=== PATIENT | female | born 1930 | race Caucasian/White ===

== ENCOUNTER 2016-12-20 12:42 | Outpatient (CLI) | payer MEDICARE, OTHER ==
[2016-04-19 16:59] VITALS: O2SAT 97
== END 2016-12-20 12:43 | disposition home or self-care (01) | DRG 561 ==
LOC: CONVCARE 12:42
PROVIDERS: ATTEND Orthopaedic Surgery
DX: S32.020D Wedge compression fracture of second lumbar vertebra, subsequent encounter for fracture with routine healing (principal); M53.3 Sacrococcygeal disorders, not elsewhere classified
CPT/HCPCS: 72120

== ENCOUNTER 2016-12-26 08:30 | Day surgery (SDC) | payer MEDICARE, OTHER ==
[2016-12-26] MEDS ORDERED: TRIAMCINOLONE ACETONIDE 40 MG/ML SUS ONE (09:08)
[2016-12-26] MEDS ORDERED: LIDOCAINE HCL 1% MPF SOL ONE (09:18)
[2016-12-26] MEDS ORDERED: DEXAMETHASONE SOD PHOS PF 10 MG/ML SOL IJ ONE (09:22)
[2016-12-26 09:43] VITALS: BP 123/82; PULSE 78; RESP 20; TEMP 97.8; O2SAT 97
== END 2016-12-26 09:55 | disposition home or self-care (01) | DRG 552 ==
LOC: SURG 08:30
PROVIDERS: ATTEND Nurse Anesthetist, Certified Registered
DX: M54.5 Low back pain (principal); M54.16 Radiculopathy, lumbar region
CPT/HCPCS: J1100; J2001; J3300

== ENCOUNTER 2017-01-29 11:13 | Day surgery (SDC) | payer MEDICARE, OTHER ==
[2017-01-29 11:41] VITALS: RESP 16; O2SAT 98
[2017-01-29] MEDS: DEXAMETHASONE SOD PHOS PF 10 MG/ML SOL IJ ONE ×2 (12:13→12:22)
[2017-01-29 12:34] VITALS: PULSE 107; TEMP 98.2
[2017-01-29 12:37] VITALS: BP 139/91
== END 2017-01-29 13:01 | disposition home or self-care (01) | DRG 552 ==
LOC: SURG 11:13
PROVIDERS: ATTEND Nurse Anesthetist, Certified Registered
DX: M54.5 Low back pain (principal); M54.16 Radiculopathy, lumbar region; Z79.01 Long term (current) use of anticoagulants
CPT/HCPCS: 36415; 85610; J1100

== ENCOUNTER 2017-05-09 09:48 | Outpatient (CLI) | payer MEDICARE, OTHER ==
[2017-01-29 11:41] VITALS: O2SAT 98
== END 2017-05-09 09:49 | disposition home or self-care (01) | DRG 556 ==
LOC: CONVCARE 09:48
PROVIDERS: ATTEND Orthopaedic Surgery
DX: M25.532 Pain in left wrist (principal); M67.432 Ganglion, left wrist
CPT/HCPCS: 73110

== ENCOUNTER → 2017-06-06 | Day surgery (SDC) | payer MEDICARE, OTHER ==
[~2017-06-06] MED LIST: BUPIVACAINE HCL 0.25% MPF 10 ML SOL INFIL ONE; FENTANYL 100MCG/2ML SOL ONE; LIDOCAINE HCL 1% MPF SOL ONE; MIDAZOLAM 2 MG/2 ML SOL ONE; PROPOFOL 10 MG/ML EMU IV ONE
[2017-06-06 11:08] VITALS: RESP 18
[2017-06-06 11:39] VITALS: O2SAT 97
[2017-06-06 12:43] VITALS: BP 121/78; PULSE 86; TEMP 97.4
== END | disposition home or self-care (01) | DRG 558 ==
LOC: SURG 08:13
PROVIDERS: ATTEND Orthopaedic Surgery
DX: M67.432 Ganglion, left wrist (principal)
CPT/HCPCS: 72192; J2250; J3010; A6402; J2001; J2704

== ENCOUNTER 2017-06-13 10:23 | Outpatient (CLI) | payer MEDICARE, OTHER ==
[2017-06-06 11:39] VITALS: O2SAT 97
== END 2017-06-13 10:24 | disposition home or self-care (01) | DRG 536 ==
LOC: CONVCARE 10:23
PROVIDERS: ATTEND Orthopaedic Surgery
DX: S72.002A Fracture of unspecified part of neck of left femur, initial encounter for closed fracture (principal); I48.91 Unspecified atrial fibrillation; Z79.01 Long term (current) use of anticoagulants; Z01.818 Encounter for other preprocedural examination
CPT/HCPCS: 36415; 85610

== ENCOUNTER 2017-06-13 11:54 | Inpatient (IN) | payer MEDICARE, OTHER ==
[2017-06-13 17:27] LABS: ABO O; ANTIBODY SCREEN Negative; RH TYPE Positive
[2017-06-13 19:50] LABS: UNIT TYPE O POSITIVE
[2017-06-13 19:51] LABS: UNIT TYPE O POSITIVE
[2017-06-13] MEDS: ACETAMINOPHEN 500 MG 500 MG TAB PO PRN (20:20)
[2017-06-13] MEDS: DILTIAZEM ER 120 MG C24 PO SCH (20:21)
[2017-06-13] MEDS: ATORVASTATIN 10 MG TAB PO SCH (20:22)
[2017-06-13] MEDS: METOPROLOL TARTRATE 50 MG TAB PO SCH (20:22)
[2017-06-13] MEDS: MAGNESIUM OXIDE 400 MG TAB PO SCH (20:23)
[2017-06-13] MEDS: PRAMIPEXOLE DIHYDROCHLORIDE 0.25 MG TAB PO SCH (20:24)
[2017-06-13] MEDS: DIPHENHYDRAMINE 25 MG CAP PO PRN (22:22)
[2017-06-13] MEDS: SODIUM CHLORIDE 0.9% FLUSH 10 ML SOL IV SCH (22:27)
[2017-06-14] MEDS ORDERED: LACTATED RINGERS 1,000 ML IV ONE (05:00)
[2017-06-14] MEDS: SODIUM CHLORIDE 0.9% FLUSH 10 ML SOL IV SCH ×5 (05:26→21:37)
[2017-06-14] MEDS ORDERED: LACTATED RINGERS 1,000 ML IV SCH (06:00)
[2017-06-14] MEDS: SCOPOLAMINE 1.5MG PATCH TD SCH (06:02)
[2017-06-14] MEDS: METOPROLOL TARTRATE 50 MG TAB PO SCH ×2 (06:25→09:35)
[2017-06-14 07:30] LABS: BASOPHILS % (AUTO) 1 % (0-3); EOSINOPHILS % (AUTO) 1 % (0-9); HEMATOCRIT 33 % (35-47); MEAN CORPUSCULAR HGB CONC 32.7 gm/dl (32.0-36.0); MONOCYTES % (AUTO) 10.6 % (0-12); NEUTROPHILS % (AUTO) 70.1 % (37-80)
[2017-06-14] MEDS ORDERED: TRANEXAMIC ACID 100 MG/ML SOL ONE (07:30)
[2017-06-14] MEDS ORDERED: SODIUM CHLORIDE 20 ML 40 ML ONE (07:30)
[2017-06-14 07:31] LABS: MEAN CORPUSCULAR VOLUME 99 fL (81-99)
[2017-06-14] MEDS ORDERED: BUPIVACAINE LIPOSOME 20 ML SUS ONE (07:31)
[2017-06-14] MEDS ORDERED: MIDAZOLAM 2 MG/2 ML SOL ONE (07:37)
[2017-06-14] MEDS ORDERED: ONDANSETRON HCL 4 MG/2 ML SOL ONE (07:37)
[2017-06-14] MEDS ORDERED: METOCLOPRAMIDE HYDROCHLORIDE 5 MG/ML SOL ONE (07:37)
[2017-06-14] MEDS ORDERED: CEFAZOLIN SODIUM 1 GM PDS ONE ×2 (07:37→15:34)
[2017-06-14] MEDS ORDERED: KETAMINE HYDROCHLORIDE 50 MG/ML SOL ONE (07:37)
[2017-06-14] MEDS ORDERED: DEXAMETHASONE 20 MG/5 ML (4 MG/ML SOL) ONE (07:38)
[2017-06-14] MEDS ORDERED: FENTANYL 100MCG/2ML SOL ONE (09:32)
[2017-06-14] MEDS: SPIRONOLACTONE 25 MG TAB PO SCH (09:34)
[2017-06-14] MEDS: PRAMIPEXOLE DIHYDROCHLORIDE 0.25 MG TAB PO SCH (09:35)
[2017-06-14] MEDS: DILTIAZEM ER 120 MG C24 PO SCH (09:35)
[2017-06-14] MEDS: MAGNESIUM OXIDE 400 MG TAB PO SCH (09:35)
[2017-06-14] MEDS: FUROSEMIDE 20 MG TAB PO SCH (09:35)
[2017-06-14] MEDS: ATORVASTATIN 10 MG TAB PO SCH (09:35)
[2017-06-14] MEDS ORDERED: SODIUM CHLORIDE 0.9% 500 ML 500 ML IV PRN (10:04)
[2017-06-14] MEDS ORDERED: DIPHENHYDRAMINE 25 MG CAP PO PRN (10:04)
[2017-06-14] MEDS ORDERED: MAGNESIUM HYDROXIDE 30 ML SUS PO PRN (10:04)
[2017-06-14] MEDS ORDERED: FLEET ENEMA PR PRN (10:04)
[2017-06-14] MEDS ORDERED: HYDROMORPHONE HCL 2 MG/ML SOL IV PRN (10:04)
[2017-06-14] MEDS ORDERED: ONDANSETRON 4 MG ODT BU PRN (10:04)
[2017-06-14] MEDS ORDERED: ONDANSETRON HCL 4 MG/2 ML SOL IV PRN (10:04)
[2017-06-14] MEDS ORDERED: BISACODYL 10 MG SUP PR PRN (10:04)
[2017-06-14] MEDS ORDERED: CEPHALEXIN 250 MG/5 ML BOTTLE PO SCH (10:15)
[2017-06-14] MEDS ORDERED: KETOROLAC TROMETHAMINE 30 MG/ML SOL ONE (10:54)
[2017-06-14] MEDS ORDERED: LORAZEPAM 2 MG/ML SOL IV PRN (11:50)
[2017-06-14] MEDS ORDERED: LORAZEPAM 0.5 MG TAB PO PRN (11:50)
[2017-06-14] MEDS: NICOTINE 7 MG PATCH TD SCH (12:05)
[2017-06-14] MEDS: DEXTROSE/SALINE 0.45% 1,000 ML IV SCH ×2 (12:06→21:35)
[2017-06-14] MEDS ORDERED: ALBUTEROL NEB SOL 2.5MG/3ML 1 VIAL SOL NEB PRN (12:33)
[2017-06-14] MEDS ORDERED: CEFAZOLIN SODIUM 1 GM PDS 1 GM in SODIUM CHLORIDE 0.9% 50 ML 50 ML IV SCH (14:15)
[2017-06-14] MEDS ORDERED: SODIUM CHLORIDE 0.9% 50 ML 50 ML IV ONE (15:34)
[2017-06-14] MEDS: CEFAZOLIN SODIUM 1 GM PDS 1 GM in SODIUM CHLORIDE 0.9% 50 ML 50 ML IV SCH (16:11)
[2017-06-14] MEDS: APAP/HYDROCODONE 325/5 TAB PO PRN ×2 (18:15→21:45)
[2017-06-14] MEDS: SENNOSIDES A AND B 8.6 MG TAB PO SCH (21:36)
[2017-06-14] MEDS: TEMAZEPAM 15MG 15 MG CAP PO PRN (21:45)
[2017-06-15] MEDS ORDERED: CEFAZOLIN SODIUM 1 GM PDS ONE (00:10)
[2017-06-15] MEDS ORDERED: SODIUM CHLORIDE 0.9% 50 ML 50 ML IV ONE (00:11)
[2017-06-15] MEDS: CEFAZOLIN SODIUM 1 GM PDS 1 GM in SODIUM CHLORIDE 0.9% 50 ML 50 ML IV SCH (00:31)
[2017-06-15] MEDS: DIAZEPAM 5 MG TAB PO PRN (00:33)
[2017-06-15] MEDS: SODIUM CHLORIDE 0.9% FLUSH 10 ML SOL IV SCH ×7 (03:46→23:10)
[2017-06-15] MEDS: APAP/HYDROCODONE 325/5 TAB PO PRN ×4 (04:23→20:39)
[2017-06-15] MEDS: DEXTROSE/SALINE 0.45% 1,000 ML IV SCH (06:31)
[2017-06-15] MEDS: CEPHALEXIN 250 MG/5 ML BOTTLE PO SCH ×4 (06:31→23:09)
[2017-06-15 07:13] LABS: MEAN CORPUSCULAR HGB CONC 33.2 gm/dl (32.0-36.0)
[2017-06-15] MEDS: SPIRONOLACTONE 25 MG TAB PO SCH (09:06)
[2017-06-15] MEDS: DILTIAZEM ER 120 MG C24 PO SCH (09:07)
[2017-06-15] MEDS: FUROSEMIDE 20 MG TAB PO SCH (09:07)
[2017-06-15] MEDS: METOPROLOL TARTRATE 50 MG TAB PO SCH (09:08)
[2017-06-15] MEDS: ATORVASTATIN 10 MG TAB PO SCH (09:08)
[2017-06-15] MEDS: MAGNESIUM OXIDE 400 MG TAB PO SCH (09:09)
[2017-06-15] MEDS: PRAMIPEXOLE DIHYDROCHLORIDE 0.25 MG TAB PO SCH (09:09)
[2017-06-15] MEDS ORDERED: SODIUM CHLORIDE 0.9% 500 ML 500 ML IV SCH ×2 (11:45→12:00)
[2017-06-15] MEDS ORDERED: SODIUM CHLORIDE 0.9% FLUSH 10 ML SOL IV PRN (11:53)
[2017-06-15] MEDS ORDERED: FUROSEMIDE 20mg SOL IV ONE (12:00)
[2017-06-15] MEDS: NICOTINE 7 MG PATCH TD SCH (13:54)
[2017-06-15] MEDS: WARFARIN SODIUM 2.5 MG TAB PO SCH (17:25)
[2017-06-15] MEDS: TEMAZEPAM 15MG 15 MG CAP PO PRN (20:39)
[2017-06-15] MEDS: SENNOSIDES A AND B 8.6 MG TAB PO SCH (20:39)
[2017-06-15] MEDS: ALUMINUM/MAGNESIUM 30 ML SUS PO PRN (23:08)
[2017-06-16] MEDS: DIAZEPAM 5 MG TAB PO PRN (00:57)
[2017-06-16] MEDS: APAP/HYDROCODONE 325/5 TAB PO PRN ×2 (02:30→18:45)
[2017-06-16] MEDS ORDERED: SODIUM CHLORIDE 0.9% 500 ML 500 ML IV ONE (04:48)
[2017-06-16] MEDS: SODIUM CHLORIDE 0.9% FLUSH 10 ML SOL IV SCH ×4 (06:16→21:24)
[2017-06-16] MEDS: CEPHALEXIN 250 MG/5 ML BOTTLE PO SCH ×4 (06:16→23:06)
[2017-06-16 07:34] LABS: MEAN CORPUSCULAR HGB CONC 33.3 gm/dl (32.0-36.0)
[2017-06-16] MEDS: PRAMIPEXOLE DIHYDROCHLORIDE 0.25 MG TAB PO SCH ×2 (10:27→20:14)
[2017-06-16] MEDS: FUROSEMIDE 20 MG TAB PO SCH (11:04)
[2017-06-16] MEDS: DILTIAZEM ER 120 MG C24 PO SCH (11:04)
[2017-06-16] MEDS: METOPROLOL SUCCINATE 50 MG ER TAB PO SCH (11:05)
[2017-06-16] MEDS: SPIRONOLACTONE 25 MG TAB PO SCH (11:05)
[2017-06-16] MEDS: ATORVASTATIN 10 MG TAB PO SCH (11:05)
[2017-06-16] MEDS: POLYETHYLENE GLYCOL 17 GM/1 TBS PDS PO SCH (11:08)
[2017-06-16] MEDS: MAGNESIUM OXIDE 400 MG TAB PO SCH (11:14)
[2017-06-16] MEDS: ALUMINUM/MAGNESIUM 30 ML SUS PO PRN (11:23)
[2017-06-16] MEDS: NICOTINE 7 MG PATCH TD SCH (14:26)
[2017-06-16] MEDS: WARFARIN SODIUM 2.5 MG TAB PO SCH (18:42)
[2017-06-16] MEDS: TEMAZEPAM 15MG 15 MG CAP PO PRN ×2 (20:14→23:07)
[2017-06-16] MEDS: SENNOSIDES A AND B 8.6 MG TAB PO SCH (20:14)
[2017-06-16] MEDS ORDERED: METOPROLOL SUCCINATE 50 MG ER TAB PO SCH (21:00)
[2017-06-17] MEDS: APAP/HYDROCODONE 325/5 TAB PO PRN ×2 (02:33→12:39)
[2017-06-17] MEDS: CEPHALEXIN 250 MG/5 ML BOTTLE PO SCH ×3 (06:23→18:09)
[2017-06-17] MEDS: SODIUM CHLORIDE 0.9% FLUSH 10 ML SOL IV SCH ×3 (06:23→22:16)
[2017-06-17] MEDS: SCOPOLAMINE 1.5MG PATCH TD SCH (06:24)
[2017-06-17 07:21] LABS: MEAN CORPUSCULAR HGB CONC 34.8 gm/dl (32.0-36.0)
[2017-06-17] MEDS: DILTIAZEM ER 120 MG C24 PO SCH (09:02)
[2017-06-17] MEDS: SPIRONOLACTONE 25 MG TAB PO SCH (09:02)
[2017-06-17] MEDS: ATORVASTATIN 10 MG TAB PO SCH (09:02)
[2017-06-17] MEDS: FUROSEMIDE 20 MG TAB PO SCH (09:02)
[2017-06-17] MEDS: MAGNESIUM OXIDE 400 MG TAB PO SCH (09:03)
[2017-06-17] MEDS: POLYETHYLENE GLYCOL 17 GM/1 TBS PDS PO SCH (09:03)
[2017-06-17] MEDS: ACETAMINOPHEN 500 MG 500 MG TAB PO PRN (09:05)
[2017-06-17] MEDS: METOPROLOL SUCCINATE 50 MG ER TAB PO SCH (09:05)
[2017-06-17] MEDS: NICOTINE 7 MG PATCH TD SCH (11:08)
[2017-06-17] MEDS: WARFARIN SODIUM 2.5 MG TAB PO SCH (18:09)
[2017-06-17] MEDS: PRAMIPEXOLE DIHYDROCHLORIDE 0.25 MG TAB PO SCH (20:19)
[2017-06-17] MEDS: SENNOSIDES A AND B 8.6 MG TAB PO SCH (20:21)
[2017-06-18] MEDS: CEPHALEXIN 250 MG/5 ML BOTTLE PO SCH ×4 (00:04→18:07)
[2017-06-18] MEDS: DIPHENHYDRAMINE 25 MG CAP PO PRN (00:10)
[2017-06-18] MEDS: ACETAMINOPHEN 500 MG 500 MG TAB PO PRN ×3 (00:10→16:38)
[2017-06-18] MEDS: APAP/HYDROCODONE 325/5 TAB PO PRN (04:39)
[2017-06-18] MEDS: SODIUM CHLORIDE 0.9% FLUSH 10 ML SOL IV SCH ×2 (06:03→14:32)
[2017-06-18] MEDS: FUROSEMIDE 20 MG TAB PO SCH (08:13)
[2017-06-18] MEDS: DILTIAZEM ER 120 MG C24 PO SCH (08:13)
[2017-06-18] MEDS: SPIRONOLACTONE 25 MG TAB PO SCH (08:13)
[2017-06-18] MEDS: MAGNESIUM OXIDE 400 MG TAB PO SCH (08:13)
[2017-06-18] MEDS: METOPROLOL SUCCINATE 50 MG ER TAB PO SCH (08:14)
[2017-06-18] MEDS: ATORVASTATIN 10 MG TAB PO SCH (08:14)
[2017-06-18] MEDS: POLYETHYLENE GLYCOL 17 GM/1 TBS PDS PO SCH (08:14)
[2017-06-18 08:48] LABS: BASOPHILS % (AUTO) 1 % (0-3); EOSINOPHILS % (AUTO) 2 % (0-9); HEMATOCRIT 29 % (35-47); MEAN CORPUSCULAR HGB CONC 32.8 gm/dl (32.0-36.0); MEAN CORPUSCULAR VOLUME 98 fL (81-99); MONOCYTES % (AUTO) 11.7 % (0-12); NEUTROPHILS % (AUTO) 61.4 % (37-80)
[2017-06-18] MEDS: NICOTINE 7 MG PATCH TD SCH (11:05)
[2017-06-18 16:42] VITALS: BP 114/76; PULSE 78; RESP 18; TEMP 97.5; O2SAT 96
[2017-06-18] MEDS: WARFARIN SODIUM 2.5 MG TAB PO SCH (18:07)
== END 2017-06-18 18:45 | disposition home or self-care (01) | DRG 470 ==
LOC: ACUTE CARE 12:28
PROVIDERS: ADMIT Family Medicine; ATTEND Family Medicine
PROC: 0SRB0J9 Replacement of Left Hip Joint with Synthetic Substitute, Cemented, Open Approach (ICD-10-PCS; principal; 2017-06-13)
PROC: F02Z1ZZ Dressing Assessment (ICD-10-PCS; 2017-06-14)
PROC: F02Z0ZZ Bathing/Showering Assessment (ICD-10-PCS; 2017-06-14)
PROC: F01ZDFZ Gait and/or Balance Assessment using Assistive, Adaptive, Supportive or Protective Equipment (ICD-10-PCS; 2017-06-15)
PROC: F01ZCZZ Transfer Assessment (ICD-10-PCS; 2017-06-15)
PROC: 30233N1 Transfusion of Nonautologous Red Blood Cells into Peripheral Vein, Percutaneous Approach (ICD-10-PCS; 2017-06-16)
DX: S72.002A Fracture of unspecified part of neck of left femur, initial encounter for closed fracture (principal); I50.30 Unspecified diastolic (congestive) heart failure; I48.2 Chronic atrial fibrillation; J44.9 Chronic obstructive pulmonary disease, unspecified; D64.9 Anemia, unspecified; G25.81 Restless legs syndrome; M81.0 Age-related osteoporosis without current pathological fracture; Z96.642 Presence of left artificial hip joint
CPT/HCPCS: 36415; 73501; 73502; 85025; 85027; 85610; 86850; 86900; 86901; 86920; 93005; 94150; 94664; 99070; J0690; J1100; J1885; J1940; J2250; J2405; J2765; J3010; P9016; A6219; A6232; A6402; A9270-GY; L1830; Q3014

== ENCOUNTER 2017-06-23 14:01 | Inpatient (IN) | payer MEDICARE, OTHER ==
[2017-06-23] MEDS ORDERED: HYDROMORPHONE 1 MG/ML SYRINGE ONE ×2 (14:07→15:38)
[2017-06-23] MEDS ORDERED: HYDROMORPHONE 1 MG/ML SYRINGE IV ONE (14:10)
[2017-06-23] MEDS ORDERED: LORAZEPAM 2 MG/ML SOL IV ONE (14:17)
[2017-06-23] MEDS ORDERED: SODIUM CHLORIDE 0.9% FLUSH 10 ML SOL IV PRN (15:17)
[2017-06-23] MEDS ORDERED: CYCLOBENZAPRINE 10 MG TAB ONE (15:23)
[2017-06-23] MEDS: CYCLOBENZAPRINE HYDROCHLORID 5 MG TAB PO SCH ×2 (15:27→23:43)
[2017-06-23 15:37] LABS: BASOPHILS % (AUTO) 1 % (0-3); EOSINOPHILS % (AUTO) 1 % (0-9); HEMATOCRIT 35 % (35-47); MEAN CORPUSCULAR HGB CONC 33.5 gm/dl (32.0-36.0); MEAN CORPUSCULAR VOLUME 97 fL (81-99); MONOCYTES % (AUTO) 9.8 % (0-12); NEUTROPHILS % (AUTO) 74.1 % (37-80)
[2017-06-23] MEDS ORDERED: APAP/OXYCODONE 325/5 TAB ONE (15:44)
[2017-06-23] MEDS: APAP/OXYCODONE 325/5 TAB PO PRN ×2 (15:44→20:07)
[2017-06-23] MEDS ORDERED: HYDROMORPHONE 1 MG/ML SYRINGE IV SCH (15:45)
[2017-06-23 15:47] LABS: CALCIUM 10.4 mg/dl (8.5-10.1); POTASSIUM 4.3 mMol/L (3.5-5.1)
[2017-06-23 17:06] LABS: APPEARANCE,URINE Clear; BILIRUBIN,URINE NEGATIVE (NEGATIVE); COLOR,URINE Yellow; GLUCOSE, URINE (UA) NEGATIVE (NEGATIVE); KETONES,URINE NEGATIVE (NEGATIVE); LEUKOCYTE ESTERASE ,URINE NEGATIVE (NEGATIVE); NITRATE,URINE NEGATIVE (NEGATIVE); OCCULT BLOOD,URINE NEGATIVE (NEG-TRACE); PH,URINE 5.5; UROBILINOGEN,URINE 0.2 (0.2-1.0 EU)
[2017-06-23] MEDS ORDERED: DIAZEPAM 5 MG TAB PO PRN (17:07)
[2017-06-23 17:16] LABS: RBC,URINE 0-1 (0-3AV/HPF); WBC,URINE 0-2 (0-5AV/HPF)
[2017-06-23] MEDS ORDERED: WARFARIN SODIUM 2.5 MG TAB PO SCH (18:00)
[2017-06-23] MEDS ORDERED: HYDRALAZINE HYDROCHLORIDE 20 MG/ML SOL ONE (18:49)
[2017-06-23] MEDS: ATORVASTATIN 10 MG TAB PO SCH (20:06)
[2017-06-23] MEDS: DILTIAZEM ER 120 MG C24 PO SCH (20:07)
[2017-06-23] MEDS ORDERED: METOPROLOL SUCCINATE 50 MG ER TAB PO SCH (21:00)
[2017-06-23] MEDS ORDERED: PRAMIPEXOLE DIHYDROCHLORIDE 0.25 MG TAB PO SCH (21:00)
[2017-06-23] MEDS ORDERED: SODIUM CHLORIDE 0.9% 1000ML 1,000 ML IV ONE ×2 (23:30)
[2017-06-24] MEDS: APAP/OXYCODONE 325/5 TAB PO PRN ×4 (01:14→21:57)
[2017-06-24] MEDS ORDERED: HYDROMORPHONE 1 MG/ML SYRINGE ONE ×3 (01:16→09:21)
[2017-06-24] MEDS: HYDROMORPHONE 1 MG/ML SYRINGE IV PRN ×3 (01:19→09:28)
[2017-06-24] MEDS: CYCLOBENZAPRINE HYDROCHLORID 5 MG TAB PO SCH (07:27)
[2017-06-24] MEDS: FUROSEMIDE 20 MG TAB PO SCH ×2 (08:44→13:39)
[2017-06-24] MEDS: SPIRONOLACTONE 25 MG TAB PO SCH ×2 (08:44→13:47)
[2017-06-24] MEDS: MULTIVITAMIN2 1 EA TAB PO SCH ×2 (08:45→13:39)
[2017-06-24] MEDS: CHOLECALCIFEROL 1,000 IU TAB PO SCH ×2 (08:45→13:38)
[2017-06-24] MEDS: ASCORBIC ACID/COPPER/LUTEIN/ 1 CAP CAP PO SCH ×2 (08:45→14:18)
[2017-06-24] MEDS ORDERED: WARFARIN SODIUM 2.5 MG TAB PO SCH (09:00)
[2017-06-24] MEDS ORDERED: MAGNESIUM 250 MG PO SCH (09:00)
[2017-06-24] MEDS ORDERED: HYDROMORPHONE HCL 2 MG/ML SOL IV PRN (09:30)
[2017-06-24] MEDS ORDERED: PROPOFOL 10 MG/ML EMU IV ONE (09:44)
[2017-06-24] MEDS ORDERED: MIDAZOLAM 2 MG/2 ML SOL ONE (10:00)
[2017-06-24] MEDS ORDERED: FENTANYL 100MCG/2ML SOL ONE ×2 (10:02→12:27)
[2017-06-24] MEDS ORDERED: FLUMAZENIL 1 MG/10 ML SOL IV ONE (11:47)
[2017-06-24] MEDS ORDERED: NALOXONE HYDROCHLORIDE 0.4 MG/ML SOL ONE (11:47)
[2017-06-24] MEDS ORDERED: KETOROLAC TROMETHAMINE 30 MG/ML SOL ONE (12:08)
[2017-06-24] MEDS: CYCLOBENZAPRINE 10 MG TAB PO SCH ×2 (13:13→21:53)
[2017-06-24] MEDS ORDERED: SODIUM CHLORIDE 0.9% 1000ML 1,000 ML IV SCH (13:15)
[2017-06-24] MEDS: WARFARIN SODIUM 5 MG TAB PO SCH (17:54)
[2017-06-24] MEDS: SODIUM CHLORIDE 0.9% 1000ML 1,000 ML IV SCH ×3 (20:00→23:08)
[2017-06-24] MEDS: DILTIAZEM ER 120 MG C24 PO SCH (20:13)
[2017-06-24] MEDS: ATORVASTATIN 10 MG TAB PO SCH (20:13)
[2017-06-24] MEDS: PRAMIPEXOLE 0.75 MG PO SCH (20:14)
[2017-06-25] MEDS: APAP/OXYCODONE 325/5 TAB PO PRN ×3 (03:30→15:43)
[2017-06-25] MEDS: SODIUM CHLORIDE 0.9% 1000ML 1,000 ML IV SCH ×2 (06:05→17:25)
[2017-06-25] MEDS: CYCLOBENZAPRINE 10 MG TAB PO SCH ×3 (06:23→22:19)
[2017-06-25 08:23] LABS: BASOPHILS % (AUTO) 1 % (0-3); EOSINOPHILS % (AUTO) 1 % (0-9); HEMATOCRIT 29 % (35-47); MEAN CORPUSCULAR HGB CONC 33.8 gm/dl (32.0-36.0); MEAN CORPUSCULAR VOLUME 97 fL (81-99); NEUTROPHILS % (AUTO) 67.5 % (37-80)
[2017-06-25 08:38] LABS: CALCIUM 9.5 mg/dl (8.5-10.1); POTASSIUM 4.1 mMol/L (3.5-5.1)
[2017-06-25] MEDS: MAGNESIUM OXIDE 400 MG TAB PO SCH (10:08)
[2017-06-25] MEDS: MULTIVITAMIN2 1 EA TAB PO SCH (10:08)
[2017-06-25] MEDS: CHOLECALCIFEROL 1,000 IU TAB PO SCH (10:09)
[2017-06-25] MEDS: SPIRONOLACTONE 25 MG TAB PO SCH (10:09)
[2017-06-25] MEDS: FUROSEMIDE 20 MG TAB PO SCH (10:10)
[2017-06-25] MEDS: WARFARIN SODIUM 5 MG TAB PO SCH (18:22)
[2017-06-25] MEDS: METOPROLOL SUCCINATE 50 MG ER TAB PO SCH ×2 (18:23→22:20)
[2017-06-25] MEDS ORDERED: SODIUM CHLORIDE 0.9% 1000ML 1,000 ML IV SCH (19:00)
[2017-06-25] MEDS ORDERED: DOCUSATE SODIUM 100 MG SGL ONE (20:59)
[2017-06-25] MEDS: DILTIAZEM ER 120 MG C24 PO SCH (21:05)
[2017-06-25] MEDS: ATORVASTATIN 10 MG TAB PO SCH (21:05)
[2017-06-25] MEDS: PRAMIPEXOLE 0.75 MG PO SCH (21:05)
[2017-06-25] MEDS ORDERED: DOCUSATE SODIUM 100 MG SGL PO PRN (23:46)
[2017-06-26] MEDS: APAP/OXYCODONE 325/5 TAB PO PRN ×2 (00:15→09:47)
[2017-06-26] MEDS: CYCLOBENZAPRINE 10 MG TAB PO SCH (05:57)
[2017-06-26 06:37] VITALS: TEMP 99.4
[2017-06-26] MEDS: MAGNESIUM OXIDE 400 MG TAB PO SCH (09:15)
[2017-06-26] MEDS: CHOLECALCIFEROL 1,000 IU TAB PO SCH (10:01)
[2017-06-26 10:02] VITALS: BP 101/65; PULSE 72; RESP 16; O2SAT 98
[2017-06-26] MEDS: SPIRONOLACTONE 25 MG TAB PO SCH (10:02)
[2017-06-26] MEDS: FUROSEMIDE 20 MG TAB PO SCH (10:02)
[2017-06-26] MEDS: MULTIVITAMIN2 1 EA TAB PO SCH (10:02)
== END 2017-06-26 12:02 | disposition swing bed (61) | DRG 561 ==
LOC: ED 14:01 → ACUTE CARE 16:00 → UNDOADMIN 16:00 → ACUTE CARE 16:15
PROVIDERS: ADMIT Family Medicine; ATTEND Family Medicine
PROC: 0SWBXJZ Revision of Synthetic Substitute in Left Hip Joint, External Approach (ICD-10-PCS; principal; 2017-06-24 10:01)
PROC: F02Z1ZZ Dressing Assessment (ICD-10-PCS; 2017-06-25)
PROC: F02Z3ZZ Grooming/Personal Hygiene Assessment (ICD-10-PCS; 2017-06-25)
PROC: F01ZDFZ Gait and/or Balance Assessment using Assistive, Adaptive, Supportive or Protective Equipment (ICD-10-PCS; 2017-06-25)
PROC: F01ZBZZ Bed Mobility Assessment (ICD-10-PCS; 2017-06-25)
PROC: F01ZCZZ Transfer Assessment (ICD-10-PCS; 2017-06-25)
DX: T84.021A Dislocation of internal left hip prosthesis, initial encounter (principal); I48.91 Unspecified atrial fibrillation; Z79.01 Long term (current) use of anticoagulants; Z96.642 Presence of left artificial hip joint
CPT/HCPCS: 36415; 73501; 73502; 80048; 81001; 85025; 85610; 93012; 94762; 96374; 96375; 99221; 99284; 99285; J0360; J1885; J2060; J2250; J2310; J3010; A9270-GY; J1170; J2704; J3490

== ENCOUNTER 2017-06-26 10:09 | Inpatient (IN) | payer MEDICARE, OTHER ==
[2017-06-26] MEDS ORDERED: DIAZEPAM 5 MG TAB PO PRN (11:50)
[2017-06-26] MEDS ORDERED: CYCLOBENZAPRINE 10 MG TAB PO SCH (12:00)
[2017-06-26] MEDS: CYCLOBENZAPRINE 10 MG TAB PO SCH ×2 (14:33→22:49)
[2017-06-26] MEDS: APAP/OXYCODONE 325/5 TAB PO PRN ×2 (16:27→22:30)
[2017-06-26] MEDS ORDERED: WARFARIN SODIUM 5 MG TAB PO SCH (18:00)
[2017-06-26] MEDS ORDERED: WARFARIN SODIUM 2.5 MG TAB PO SCH (18:00)
[2017-06-26] MEDS: DILTIAZEM ER 120 MG C24 PO SCH (20:16)
[2017-06-26] MEDS: ATORVASTATIN 10 MG TAB PO SCH (20:16)
[2017-06-26] MEDS: PRAMIPEXOLE 0.75 MG PO SCH (20:17)
[2017-06-26] MEDS: SENNOSIDES A AND B 8.6 MG TAB PO SCH (20:20)
[2017-06-26] MEDS: METOPROLOL SUCCINATE 50 MG ER TAB PO SCH (20:20)
[2017-06-27] MEDS: CYCLOBENZAPRINE 10 MG TAB PO SCH ×3 (05:50→21:15)
[2017-06-27] MEDS: APAP/OXYCODONE 325/5 TAB PO PRN ×2 (07:48→20:10)
[2017-06-27] MEDS: SPIRONOLACTONE 25 MG TAB PO SCH (08:49)
[2017-06-27] MEDS: FUROSEMIDE 20 MG TAB PO SCH (08:49)
[2017-06-27] MEDS: MAGNESIUM OXIDE 400 MG TAB PO SCH (08:50)
[2017-06-27] MEDS: MULTIVITAMIN2 1 EA TAB PO SCH (08:51)
[2017-06-27] MEDS: CHOLECALCIFEROL 1,000 IU TAB PO SCH (08:52)
[2017-06-27] MEDS: ACETAMINOPHEN 500 MG 500 MG TAB PO PRN (13:14)
[2017-06-27] MEDS ORDERED: WARFARIN SODIUM 7.5 MG TAB PO SCH (18:00)
[2017-06-27] MEDS: DILTIAZEM ER 120 MG C24 PO SCH (20:01)
[2017-06-27] MEDS: METOPROLOL SUCCINATE 50 MG ER TAB PO SCH (20:02)
[2017-06-27] MEDS: PRAMIPEXOLE 0.75 MG PO SCH (20:02)
[2017-06-27] MEDS: ATORVASTATIN 10 MG TAB PO SCH (20:02)
[2017-06-27] MEDS: SENNOSIDES A AND B 8.6 MG TAB PO SCH (20:02)
[2017-06-28] MEDS: APAP/OXYCODONE 325/5 TAB PO PRN ×3 (01:45→23:56)
[2017-06-28] MEDS: CYCLOBENZAPRINE 10 MG TAB PO SCH ×3 (05:54→21:54)
[2017-06-28] MEDS: MULTIVITAMIN2 1 EA TAB PO SCH (09:13)
[2017-06-28] MEDS: FUROSEMIDE 20 MG TAB PO SCH (09:13)
[2017-06-28] MEDS: SPIRONOLACTONE 25 MG TAB PO SCH (09:13)
[2017-06-28] MEDS: MAGNESIUM OXIDE 400 MG TAB PO SCH (09:13)
[2017-06-28] MEDS: CHOLECALCIFEROL 1,000 IU TAB PO SCH (09:13)
[2017-06-28] MEDS: ACETAMINOPHEN 500 MG 500 MG TAB PO PRN (09:26)
[2017-06-28] MEDS: WARFARIN SODIUM 5 MG TAB PO SCH (18:17)
[2017-06-28] MEDS: ATORVASTATIN 10 MG TAB PO SCH (20:06)
[2017-06-28] MEDS: DILTIAZEM ER 120 MG C24 PO SCH (20:06)
[2017-06-28] MEDS: SENNOSIDES A AND B 8.6 MG TAB PO SCH (20:07)
[2017-06-28] MEDS: PRAMIPEXOLE 0.75 MG PO SCH (20:07)
[2017-06-28] MEDS: METOPROLOL SUCCINATE 50 MG ER TAB PO SCH (20:07)
[2017-06-29] MEDS: CYCLOBENZAPRINE 10 MG TAB PO SCH ×3 (06:20→21:53)
[2017-06-29] MEDS: APAP/OXYCODONE 325/5 TAB PO PRN ×2 (08:32→17:16)
[2017-06-29] MEDS: SPIRONOLACTONE 25 MG TAB PO SCH (08:33)
[2017-06-29] MEDS: FUROSEMIDE 20 MG TAB PO SCH (08:33)
[2017-06-29] MEDS: MAGNESIUM OXIDE 400 MG TAB PO SCH (08:33)
[2017-06-29] MEDS: CHOLECALCIFEROL 1,000 IU TAB PO SCH (08:34)
[2017-06-29] MEDS: MULTIVITAMIN2 1 EA TAB PO SCH (08:34)
[2017-06-29] MEDS: WARFARIN SODIUM 5 MG TAB PO SCH (17:37)
[2017-06-29] MEDS: METOPROLOL SUCCINATE 50 MG ER TAB PO SCH (20:24)
[2017-06-29] MEDS: DILTIAZEM ER 120 MG C24 PO SCH (20:25)
[2017-06-29] MEDS: PRAMIPEXOLE 0.75 MG PO SCH (20:25)
[2017-06-29] MEDS: ATORVASTATIN 10 MG TAB PO SCH (20:25)
[2017-06-29] MEDS: SENNOSIDES A AND B 8.6 MG TAB PO SCH (20:26)
[2017-06-30] MEDS: APAP/OXYCODONE 325/5 TAB PO PRN ×4 (01:04→20:48)
[2017-06-30] MEDS: ACETAMINOPHEN 500 MG 500 MG TAB PO PRN (02:27)
[2017-06-30] MEDS: CYCLOBENZAPRINE 10 MG TAB PO SCH ×3 (06:24→21:47)
[2017-06-30] MEDS: SPIRONOLACTONE 25 MG TAB PO SCH (08:18)
[2017-06-30] MEDS: MAGNESIUM OXIDE 400 MG TAB PO SCH (08:19)
[2017-06-30] MEDS: FUROSEMIDE 20 MG TAB PO SCH (08:19)
[2017-06-30] MEDS: CHOLECALCIFEROL 1,000 IU TAB PO SCH (08:20)
[2017-06-30] MEDS: MULTIVITAMIN2 1 EA TAB PO SCH (08:21)
[2017-06-30] MEDS: WARFARIN SODIUM 5 MG TAB PO SCH (18:59)
[2017-06-30] MEDS: ATORVASTATIN 10 MG TAB PO SCH (21:43)
[2017-06-30] MEDS: SENNOSIDES A AND B 8.6 MG TAB PO SCH (21:43)
[2017-06-30] MEDS: DILTIAZEM ER 120 MG C24 PO SCH (21:43)
[2017-06-30] MEDS: METOPROLOL SUCCINATE 50 MG ER TAB PO SCH (21:44)
[2017-06-30] MEDS: PRAMIPEXOLE 0.75 MG PO SCH (21:44)
[2017-07-01] MEDS: APAP/OXYCODONE 325/5 TAB PO PRN ×3 (02:46→19:48)
[2017-07-01] MEDS: CYCLOBENZAPRINE 10 MG TAB PO SCH ×3 (06:20→21:00)
[2017-07-01] MEDS: MAGNESIUM OXIDE 400 MG TAB PO SCH (08:34)
[2017-07-01] MEDS: MULTIVITAMIN2 1 EA TAB PO SCH (08:34)
[2017-07-01] MEDS: FUROSEMIDE 20 MG TAB PO SCH (08:34)
[2017-07-01] MEDS: CHOLECALCIFEROL 1,000 IU TAB PO SCH (08:34)
[2017-07-01] MEDS: SPIRONOLACTONE 25 MG TAB PO SCH (08:34)
[2017-07-01] MEDS ORDERED: WARFARIN SODIUM 7.5 MG TAB PO SCH (18:00)
[2017-07-01] MEDS: ATORVASTATIN 10 MG TAB PO SCH (20:48)
[2017-07-01] MEDS: DILTIAZEM ER 120 MG C24 PO SCH (20:48)
[2017-07-01] MEDS: PRAMIPEXOLE 0.75 MG PO SCH (20:49)
[2017-07-01] MEDS: METOPROLOL SUCCINATE 50 MG ER TAB PO SCH (20:51)
[2017-07-01] MEDS: SENNOSIDES A AND B 8.6 MG TAB PO SCH (20:51)
[2017-07-02] MEDS: ACETAMINOPHEN 500 MG 500 MG TAB PO PRN ×2 (01:19→13:41)
[2017-07-02] MEDS: CYCLOBENZAPRINE 10 MG TAB PO SCH ×3 (06:10→23:14)
[2017-07-02] MEDS: CHOLECALCIFEROL 1,000 IU TAB PO SCH (08:08)
[2017-07-02] MEDS: SPIRONOLACTONE 25 MG TAB PO SCH (08:08)
[2017-07-02] MEDS: MULTIVITAMIN2 1 EA TAB PO SCH (08:08)
[2017-07-02] MEDS: MAGNESIUM OXIDE 400 MG TAB PO SCH (08:09)
[2017-07-02] MEDS: FUROSEMIDE 20 MG TAB PO SCH (08:09)
[2017-07-02 08:18] VITALS: O2SAT 97
[2017-07-02] MEDS: APAP/OXYCODONE 325/5 TAB PO PRN ×2 (09:50→19:59)
[2017-07-02] MEDS ORDERED: WARFARIN SODIUM 5 MG TAB PO SCH (18:00)
[2017-07-02] MEDS: ATORVASTATIN 10 MG TAB PO SCH (20:00)
[2017-07-02] MEDS: PRAMIPEXOLE 0.75 MG PO SCH (20:00)
[2017-07-02] MEDS: DILTIAZEM ER 120 MG C24 PO SCH (20:00)
[2017-07-02] MEDS: SENNOSIDES A AND B 8.6 MG TAB PO SCH (20:01)
[2017-07-02] MEDS: METOPROLOL SUCCINATE 50 MG ER TAB PO SCH (20:07)
[2017-07-03] MEDS: APAP/OXYCODONE 325/5 TAB PO PRN ×2 (03:38→10:21)
[2017-07-03] MEDS: CYCLOBENZAPRINE 10 MG TAB PO SCH ×2 (05:43→14:05)
[2017-07-03] MEDS: SPIRONOLACTONE 25 MG TAB PO SCH (09:34)
[2017-07-03] MEDS: MAGNESIUM OXIDE 400 MG TAB PO SCH (09:35)
[2017-07-03] MEDS: FUROSEMIDE 20 MG TAB PO SCH (09:35)
[2017-07-03] MEDS: CHOLECALCIFEROL 1,000 IU TAB PO SCH (09:36)
[2017-07-03] MEDS: MULTIVITAMIN2 1 EA TAB PO SCH (09:36)
[2017-07-03 10:12] VITALS: BP 100/58; PULSE 85; RESP 18; TEMP 97.8
[2017-07-03] MEDS ORDERED: WARFARIN SODIUM 2.5 MG TAB PO ONE (18:00)
== END 2017-07-03 16:55 | disposition home health service (06) | DRG 946 ==
LOC: ACUTE CARE 12:07
PROVIDERS: ADMIT Family Medicine; ATTEND Family Medicine
PROC: F01ZDFZ Gait and/or Balance Assessment using Assistive, Adaptive, Supportive or Protective Equipment (ICD-10-PCS; principal; 2017-06-26)
PROC: F01ZBZZ Bed Mobility Assessment (ICD-10-PCS; 2017-06-26)
PROC: F01ZCZZ Transfer Assessment (ICD-10-PCS; 2017-06-26)
PROC: F02Z1ZZ Dressing Assessment (ICD-10-PCS; 2017-06-26)
PROC: F02Z3ZZ Grooming/Personal Hygiene Assessment (ICD-10-PCS; 2017-06-26)
PROC: F02Z4ZZ Home Management Assessment (ICD-10-PCS; 2017-06-26)
DX: T84.021D Dislocation of internal left hip prosthesis, subsequent encounter (principal); I48.2 Chronic atrial fibrillation; Z96.642 Presence of left artificial hip joint; Z47.89 Encounter for other orthopedic aftercare
CPT/HCPCS: 36415; 85610; A6232; A9270-GY

== ENCOUNTER 2017-07-25 11:24 | Outpatient (CLI) | payer MEDICARE, OTHER | END 2017-07-25 11:25 | disposition home or self-care (01) | DRG 951 | LOC: CONVCARE 11:24 | PROVIDERS: ATTEND Orthopaedic Surgery | DX: Z98.890 Other specified postprocedural states (principal); Z47.1 Aftercare following joint replacement surgery; Z96.642 Presence of left artificial hip joint | CPT/HCPCS: 73501 ==

== ENCOUNTER 2017-10-26 22:05 | Emergency (ER) | payer MEDICARE, OTHER ==
[2017-10-26] MEDS ORDERED: HYDROMORPHONE 1 MG/ML SYRINGE IV ONE (22:53)
[2017-10-26] MEDS ORDERED: HYDROMORPHONE HCL 2 MG/ML SOL ONE (22:56)
[2017-10-26 23:24] VITALS: TEMP 98.9
[2017-10-27 05:52] VITALS: RESP 20
[2017-10-27 05:53] VITALS: O2SAT 98
[2017-10-27 05:54] VITALS: BP 140/90; PULSE 89
== END 2017-10-27 00:40 | disposition home or self-care (01) | DRG 556 ==
LOC: ED 22:05
DX: M25.551 Pain in right hip (principal)
CPT/HCPCS: 73502; 96374; 99283; J1170

== ENCOUNTER 2017-11-08 13:26 | Inpatient (IN) | payer MEDICARE, OTHER ==
[2017-11-08] MEDS ORDERED: WARFARIN SODIUM 2.5 MG TAB PO SCH ×2 (16:15→18:00)
[2017-11-08] MEDS ORDERED: POTASSIUM CHLORIDE 2 MEQ/ML SOL IV ONE (16:39)
[2017-11-08] MEDS: DEXTROSE/SALINE 0.9% 1,000 ML with POTASSIUM CHLORIDE 2 MEQ/ML 20 MEQ IV SCH (16:47)
[2017-11-08] MEDS: BISACODYL 5 MG TAB ECT PO PRN (18:37)
[2017-11-08] MEDS: APAP/HYDROCODONE 325/5 TAB PO PRN (18:37)
[2017-11-08] MEDS: DILTIAZEM ER 120 MG C24 PO SCH (20:50)
[2017-11-08] MEDS: ATORVASTATIN 10 MG TAB PO SCH (20:50)
[2017-11-08] MEDS: METOPROLOL SUCCINATE 50 MG ER TAB PO SCH (20:51)
[2017-11-08] MEDS: MELATONIN 3 MG TAB PO SCH (20:51)
[2017-11-08] MEDS: PRAMIPEXOLE 1 MG TABLET PO SCH (20:52)
[2017-11-08] MEDS: ACETAMINOPHEN 325 MG PO PRN (23:08)
[2017-11-09] MEDS ORDERED: LIDOCAINE HCL 1% MPF 30 SOL ONE (02:42)
[2017-11-09] MEDS ORDERED: POTASSIUM CHLORIDE 2 MEQ/ML SOL IV ONE (02:42)
[2017-11-09] MEDS: DEXTROSE/SALINE 0.9% 1,000 ML with POTASSIUM CHLORIDE 2 MEQ/ML 20 MEQ IV SCH (02:49)
[2017-11-09 07:51] LABS: CALCIUM 10.9 mg/dl (8.5-10.1); CREATININE 0.77 mg/dl (0.60-1.00); POTASSIUM 4.4 mMol/L (3.5-5.1)
[2017-11-09 08:04] LABS: CARBON DIOXIDE 29.3 mEq/L (21-32)
[2017-11-09 08:15] LABS: INR 2.07 (0.86-1.12)
[2017-11-09] MEDS: SPIRONOLACTONE 25 MG TAB PO SCH (08:41)
[2017-11-09] MEDS: BISACODYL 5 MG TAB ECT PO PRN (08:45)
[2017-11-09] MEDS: APAP/HYDROCODONE 325/5 TAB PO PRN ×2 (13:38→20:15)
[2017-11-09] MEDS ORDERED: WARFARIN SODIUM 1 MG TAB PO SCH (16:01)
[2017-11-09] MEDS: WARFARIN SODIUM 2.5 MG TAB PO SCH (17:43)
[2017-11-09] MEDS: ATORVASTATIN 10 MG TAB PO SCH (20:16)
[2017-11-09] MEDS: DILTIAZEM ER 120 MG C24 PO SCH (20:16)
[2017-11-09] MEDS: MELATONIN 3 MG TAB PO SCH (20:18)
[2017-11-09] MEDS: METOPROLOL SUCCINATE 50 MG ER TAB PO SCH (20:19)
[2017-11-09] MEDS: PRAMIPEXOLE 1 MG TABLET PO SCH (20:19)
[2017-11-10] MEDS: APAP/HYDROCODONE 325/5 TAB PO PRN ×3 (03:47→21:06)
[2017-11-10 07:32] LABS: CALCIUM 11.1 mg/dl (8.5-10.1); CREATININE 0.71 mg/dl (0.60-1.00); POTASSIUM 4.3 mMol/L (3.5-5.1)
[2017-11-10 07:36] LABS: INR 2.96 (0.86-1.12)
[2017-11-10] MEDS: SPIRONOLACTONE 25 MG TAB PO SCH (08:28)
[2017-11-10] MEDS ORDERED: POLYETHYLENE GLYCOL 17 GM/1 TBS PDS PO SCH (09:00)
[2017-11-10] MEDS: ACETAMINOPHEN 325 MG PO PRN (16:29)
[2017-11-10] MEDS: WARFARIN SODIUM 2.5 MG TAB PO SCH (18:06)
[2017-11-10] MEDS: DILTIAZEM ER 120 MG C24 PO SCH (20:07)
[2017-11-10] MEDS: MELATONIN 3 MG TAB PO SCH (20:07)
[2017-11-10] MEDS: ATORVASTATIN 10 MG TAB PO SCH (20:08)
[2017-11-10] MEDS: PRAMIPEXOLE 1 MG TABLET PO SCH (20:09)
[2017-11-10] MEDS: METOPROLOL SUCCINATE 50 MG ER TAB PO SCH (20:09)
[2017-11-11] MEDS: APAP/HYDROCODONE 325/5 TAB PO PRN ×3 (02:58→20:07)
[2017-11-11 07:46] LABS: INR 3.57 (0.86-1.12)
[2017-11-11] MEDS ORDERED: POLYETHYLENE GLYCOL 17 GM/1 TBS PDS PO PRN (07:56)
[2017-11-11] MEDS: ACETAMINOPHEN 325 MG PO PRN ×2 (08:04→22:59)
[2017-11-11] MEDS ORDERED: PATIENT EDUCATION 1 MISC PRN (09:00)
[2017-11-11] MEDS: SPIRONOLACTONE 25 MG TAB PO SCH (09:29)
[2017-11-11] MEDS ORDERED: WARFARIN SODIUM 5 MG TAB PO SCH (18:00)
[2017-11-11] MEDS: DILTIAZEM ER 120 MG C24 PO SCH (20:39)
[2017-11-11] MEDS: ATORVASTATIN 10 MG TAB PO SCH (20:39)
[2017-11-11] MEDS: PRAMIPEXOLE 1 MG TABLET PO SCH (20:39)
[2017-11-11] MEDS: MELATONIN 3 MG TAB PO SCH (20:40)
[2017-11-11] MEDS: METOPROLOL SUCCINATE 50 MG ER TAB PO SCH (20:40)
[2017-11-11 23:02] VITALS: RESP 24
[2017-11-12] MEDS: ACETAMINOPHEN 325 MG PO PRN (05:27)
[2017-11-12 07:28] VITALS: BP 138/88; PULSE 83; TEMP 97.4; O2SAT 99
[2017-11-12] MEDS: BISACODYL 5 MG TAB ECT PO PRN (09:01)
[2017-11-12] MEDS: SPIRONOLACTONE 25 MG TAB PO SCH (09:01)
[2017-11-12] MEDS: APAP/HYDROCODONE 325/5 TAB PO PRN (09:01)
[2017-11-12 13:46] LABS: *ALBUMIN % 55.4 % (50.0-67.0); *ALPHA 1% 9.4 % (3.0-5.5); *ALPHA 2% 15.2 % (8.5-14.0); *BETA % 10.6 % (9.0-14.7); *CALC A/G/RATIO 1.2 (0.9-2.5); *CALCULATED ALBUMIN 3.05 gm/dl (3.30-4.60); *CALCULATED ALPHA 1 0.52 gm/dl (0.20-0.40); *CALCULATED ALPHA 2 0.84 gm/dl (0.50-1.00); *CALCULATED BETA 0.58 gm/dl (0.60-1.20); *CALCULATED GAMMA 0.52 gm/dl (0.60-1.60); *ELP TOTAL PROTEIN 5.5 gm/dl (6.0-8.0); *GAMMA% 9.4 % (9.5-20.0)
[2017-11-12] MEDS ORDERED: WARFARIN SODIUM 2.5 MG TAB PO SCH (18:00)
== END 2017-11-12 12:30 | DRG 946 ==
LOC: ACUTE CARE 14:07
PROVIDERS: ADMIT Family Medicine; ATTEND Family Medicine
PROC: F01L0FZ Muscle Performance Assessment of Musculoskeletal System - Lower Back / Lower Extremity using Assistive, Adaptive, Supportive or Protective Equipment (ICD-10-PCS; principal; 2017-11-11)
PROC: F01ZDFZ Gait and/or Balance Assessment using Assistive, Adaptive, Supportive or Protective Equipment (ICD-10-PCS; 2017-11-11)
DX: R53.1 Weakness (principal); L97.512 Non-pressure chronic ulcer of other part of right foot with fat layer exposed; I48.91 Unspecified atrial fibrillation; K59.01 Slow transit constipation; M81.0 Age-related osteoporosis without current pathological fracture; Z79.01 Long term (current) use of anticoagulants; R60.9 Edema, unspecified; S81.812A Laceration without foreign body, left lower leg, initial encounter; S81.811A Laceration without foreign body, right lower leg, initial encounter
CPT/HCPCS: 36415; 80048; 85610; 99232; J3480; A6232; A9270-GY; J2001

== ENCOUNTER 2017-12-19 15:43 | Emergency (ER) | payer MEDICARE, OTHER ==
[2017-12-19 15:58] VITALS: TEMP 98.1
[2017-12-19 16:14] LABS: BASOPHILS % (AUTO) 0 % (0-3); EOSINOPHILS % (AUTO) 0 % (0-9); HEMATOCRIT 38 % (35-47); HEMOGLOBIN 12.1 gm/dl (12.0-15.5); LYMPHOCYTES % (AUTO) 18.18 % (10-50); MEAN CORPUSCULAR HEMOGLOBIN 30.1 pg (27.0-32.0); MEAN CORPUSCULAR HGB CONC 31.8 gm/dl (32.0-36.0); MEAN CORPUSCULAR VOLUME 95 fL (81-99); MONOCYTES % (AUTO) 7.1 % (0-12); NEUTROPHILS % (AUTO) 73.8 % (37-80)
[2017-12-19 16:23] LABS: INR 1.64 (0.86-1.12)
[2017-12-19 16:28] LABS: ALBUMIN 4.1 gm/dl (3.4-5.0); BILIRUBIN,TOTAL 0.7 mg/dl (0.2-1.0); CALCIUM 10.1 mg/dl (8.5-10.1); CARBON DIOXIDE 28.6 mEq/L (21-32); CREATININE 0.94 mg/dl (0.60-1.00); POTASSIUM 3.9 mMol/L (3.5-5.1)
[2017-12-19] MEDS ORDERED: FENTANYL 100MCG/2ML SOL ONE (17:02)
[2017-12-19] MEDS ORDERED: FENTANYL 100MCG/2ML SOL IV ONE (17:08)
[2017-12-19 18:32] VITALS: RESP 18
[2017-12-19] MEDS ORDERED: DIAZEPAM 5 MG TAB ONE (18:49)
[2017-12-19] MEDS ORDERED: DIAZEPAM 5 MG TAB PO ONE (18:52)
[2017-12-19 18:58] VITALS: O2SAT 99
[2017-12-19 18:59] VITALS: BP 116/77; PULSE 103
== END 2017-12-19 19:00 | disposition short-term general hospital (02) | DRG 536 ==
LOC: ED 15:43
DX: S72.001A Fracture of unspecified part of neck of right femur, initial encounter for closed fracture (principal); S62.614A Displaced fracture of proximal phalanx of right ring finger, initial encounter for closed fracture; W18.39XA Other fall on same level, initial encounter; Y92.512 Supermarket, store or market as the place of occurrence of the external cause; Z79.01 Long term (current) use of anticoagulants
CPT/HCPCS: 36415; 72192; 73130; 80053; 85025; 85610; 96374; 99284; 99285; J3010; A9270-GY

== ENCOUNTER 2018-02-17 10:29 | Day surgery (SDC) | payer MEDICARE, OTHER ==
[~2018-02-17 10:29] MED LIST changes: -BUPIVACAINE HCL 0.25% MPF 10 ML SOL INFIL ONE; -FENTANYL 100MCG/2ML SOL ONE; +LIDOCAINE HCL 1% MPF 30 SOL ONE; -LIDOCAINE HCL 1% MPF SOL ONE; -MIDAZOLAM 2 MG/2 ML SOL ONE; +PROPOFOL 500 MG/50 ML EMU IV ONE
[2018-02-17] MEDS ORDERED: SODIUM CHLORIDE 0.9% FLUSH 10 ML SOL IV ONE (11:25)
[2018-02-17] MEDS ORDERED: CEFAZOLIN SODIUM 1 GM PDS ONE (11:39)
[2018-02-17] MEDS ORDERED: PROPOFOL 10 MG/ML EMU IV ONE (11:49)
[2018-02-17] MEDS ORDERED: KETOROLAC TROMETHAMINE 30 MG/ML SOL ONE (12:14)
[2018-02-17 13:19] VITALS: BP 120/88; PULSE 88; RESP 18; TEMP 97.4; O2SAT 97
== END 2018-02-17 14:21 | disposition home or self-care (01) | DRG 74 ==
LOC: SURG 10:29
PROVIDERS: ATTEND Orthopaedic Surgery
DX: G56.22 Lesion of ulnar nerve, left upper limb (principal); G56.02 Carpal tunnel syndrome, left upper limb
CPT/HCPCS: 85610; J0690; J1885; J2001; J2704

== ENCOUNTER 2018-08-24 09:47 | Inpatient (IN) | payer MEDICARE, OTHER ==
[2018-08-24 10:19] LABS: BASOPHILS % (AUTO) 0 % (0-3); EOSINOPHILS % (AUTO) 0 % (0-9); HEMATOCRIT 43 % (35-47); HEMOGLOBIN 13.6 gm/dl (12.0-15.5); MEAN CORPUSCULAR HEMOGLOBIN 32.1 pg (27.0-32.0); MEAN CORPUSCULAR HGB CONC 31.4 gm/dl (32.0-36.0); MONOCYTES % (AUTO) 7.8 % (0-12); NEUTROPHILS % (AUTO) 85.8 % (37-80)
[2018-08-24 10:24] LABS: CALCIUM 10.1 mg/dl (8.5-10.1); CARBON DIOXIDE 29.1 mEq/L (21-32); CREATININE 0.99 mg/dl (0.60-1.00); POTASSIUM 4.7 mMol/L (3.5-5.1)
[2018-08-24 10:28] LABS: INR 1.35 (0.86-1.12)
[2018-08-24 10:33] LABS: MEAN CORPUSCULAR VOLUME 102 fL (81-99)
[2018-08-24] MEDS ORDERED: TRAMADOL HYDROCHLORIDE 50 MG TAB PO ONE (10:40)
[2018-08-24] MEDS ORDERED: TRAMADOL HYDROCHLORIDE 50 MG TAB ONE (10:41)
[2018-08-24 11:56] LABS: APPEARANCE,URINE Clear; BACTERIA 1+ (< 1+); BILIRUBIN,URINE NEGATIVE (NEGATIVE); COLOR,URINE Yellow; CRYSTALS NEGATIVE (0-3 AVE/HPF); EPITHELIAL CELLS 0-2 (SQUAMOUS); GLUCOSE, URINE (UA) NEGATIVE (NEGATIVE); KETONES,URINE NEGATIVE (NEGATIVE); LEUKOCYTE ESTERASE ,URINE NEGATIVE (NEGATIVE); NITRATE,URINE NEGATIVE (NEGATIVE); OCCULT BLOOD,URINE NEGATIVE (NEG-TRACE); RBC,URINE 0-2 (0-3AV/HPF); UROBILINOGEN,URINE 0.2 (0.2-1.0 EU); WBC,URINE 0-3 (0-5AV/HPF)
[2018-08-24] MEDS ORDERED: ACETAMINOPHEN 325 MG PO PRN ×2 (13:03→16:39)
[2018-08-24] MEDS ORDERED: WARFARIN SODIUM 2.5 MG TAB PO SCH ×2 (13:15→18:45)
[2018-08-24] MEDS ORDERED: AMOXICILLIN 125/5 ML BOTTLE PO SCH (15:00)
[2018-08-24] MEDS ORDERED: SPIRONOLACTONE 25 MG TAB PO SCH (16:15)
[2018-08-24] MEDS: MAGNESIUM OXIDE 400 MG TAB PO SCH (17:25)
[2018-08-24] MEDS: FUROSEMIDE 40 MG TAB PO SCH (17:25)
[2018-08-24] MEDS: PANTOPRAZOLE SODIUM 40 MG ECT PO SCH (17:25)
[2018-08-24] MEDS: METOPROLOL SUCCINATE 50 MG ER TAB PO SCH (18:26)
[2018-08-24] MEDS: SODIUM CHLORIDE 0.9% FLUSH 10 ML SOL IV SCH ×2 (18:43→23:42)
[2018-08-24] MEDS: DILTIAZEM ER 120 MG C24 PO SCH (21:02)
[2018-08-24] MEDS: AMOXICILLIN 125/5 ML BOTTLE PO SCH (21:02)
[2018-08-24] MEDS: ATORVASTATIN 10 MG TAB PO SCH (21:02)
[2018-08-24] MEDS: PRAMIPEXOLE DIHYDROCHLORIDE 0.25 MG TAB PO SCH (21:02)
[2018-08-24] MEDS: TRAMADOL HYDROCHLORIDE 50 MG TAB PO PRN (23:33)
[2018-08-25] MEDS: SODIUM CHLORIDE 0.9% FLUSH 10 ML SOL IV SCH ×4 (02:18→20:35)
[2018-08-25 07:37] LABS: CALCIUM 9.6 mg/dl (8.5-10.1); CREATININE 0.89 mg/dl (0.60-1.00)
[2018-08-25 07:38] LABS: HEMOGLOBIN 13.3 gm/dl (12.0-15.5); MEAN CORPUSCULAR HEMOGLOBIN 31.6 pg (27.0-32.0); MEAN CORPUSCULAR HGB CONC 31.2 gm/dl (32.0-36.0)
[2018-08-25 07:45] LABS: CARBON DIOXIDE 33.3 mEq/L (21-32); INR 1.54 (0.86-1.12); POTASSIUM 4.5 mMol/L (3.5-5.1)
[2018-08-25] MEDS ORDERED: FUROSEMIDE 40 MG SOL IV SCH (08:00)
[2018-08-25] MEDS: TRAMADOL HYDROCHLORIDE 50 MG TAB PO PRN ×2 (08:01→13:32)
[2018-08-25] MEDS: METOPROLOL SUCCINATE 50 MG ER TAB PO SCH (08:01)
[2018-08-25] MEDS: AMOXICILLIN 125/5 ML BOTTLE PO SCH ×2 (08:02→20:36)
[2018-08-25] MEDS: PANTOPRAZOLE SODIUM 40 MG ECT PO SCH (08:02)
[2018-08-25] MEDS: ACETAMINOPHEN 500 MG 500 MG TAB PO SCH ×3 (08:02→20:43)
[2018-08-25] MEDS: MAGNESIUM OXIDE 400 MG TAB PO SCH (08:02)
[2018-08-25] MEDS ORDERED: SENNOSIDES A AND B 8.6 MG TAB PO PRN (08:46)
[2018-08-25] MEDS ORDERED: POLYETHYLENE GLYCOL 17 GM/1 TBS PDS PO PRN (08:46)
[2018-08-25] MEDS ORDERED: SPIRONOLACTONE 25 MG TAB PO SCH (09:00)
[2018-08-25] MEDS ORDERED: METOPROLOL TARTRATE 50 MG TAB PO SCH (09:00)
[2018-08-25] MEDS: GABAPENTIN 100 MG CAP PO SCH ×2 (10:27→20:42)
[2018-08-25] MEDS ORDERED: LORAZEPAM 0.5 MG TAB PO ONE (13:30)
[2018-08-25] MEDS: WARFARIN SODIUM 2.5 MG TAB PO SCH (18:21)
[2018-08-25] MEDS: CALCITONIN (SALMON) 200 IU/Actuation SPR NAS SCH (18:30)
[2018-08-25] MEDS: DILTIAZEM ER 120 MG C24 PO SCH (20:41)
[2018-08-25] MEDS: ATORVASTATIN 10 MG TAB PO SCH (20:41)
[2018-08-25] MEDS: PRAMIPEXOLE DIHYDROCHLORIDE 0.25 MG TAB PO SCH (20:42)
[2018-08-26] MEDS: SODIUM CHLORIDE 0.9% FLUSH 10 ML SOL IV SCH ×3 (04:04→19:01)
[2018-08-26 07:18] LABS: BLOOD UREA NITROGEN 24 mg/dl (7-18); CALCIUM 9.8 mg/dl (8.5-10.1); CARBON DIOXIDE 32.8 mEq/L (21-32); CHLORIDE 107 mMol/L (98-107); CREATININE 0.81 mg/dl (0.60-1.00); GLUCOSE 103 mg/dl (74-106); POTASSIUM 4.7 mMol/L (3.5-5.1); SODIUM 143 mMol/L (136-145); TROP I < 0.017 ng/ml (0.000-0.056)
[2018-08-26] MEDS: CALCITONIN (SALMON) 200 IU/Actuation SPR NAS SCH (09:37)
[2018-08-26] MEDS: ACETAMINOPHEN 500 MG 500 MG TAB PO SCH ×3 (09:38→20:34)
[2018-08-26] MEDS: GABAPENTIN 100 MG CAP PO SCH ×2 (09:38→20:33)
[2018-08-26] MEDS: MAGNESIUM OXIDE 400 MG TAB PO SCH (09:38)
[2018-08-26] MEDS: PANTOPRAZOLE SODIUM 40 MG ECT PO SCH (09:38)
[2018-08-26] MEDS: AMOXICILLIN 125/5 ML BOTTLE PO SCH ×2 (09:46→20:30)
[2018-08-26] MEDS: METOPROLOL SUCCINATE 50 MG ER TAB PO SCH (09:53)
[2018-08-26] MEDS: ALBUTEROL/IPRATROPIUM 1 VIAL SOL INH SCH ×3 (10:00→20:35)
[2018-08-26] MEDS: TRAMADOL HYDROCHLORIDE 50 MG TAB PO PRN ×2 (10:12→23:02)
[2018-08-26] MEDS: FUROSEMIDE 40 MG TAB PO SCH (12:00)
[2018-08-26] MEDS ORDERED: FUROSEMIDE 40 MG TAB ONE (12:11)
[2018-08-26] MEDS ORDERED: ALBUTEROL NEB SOL 2.5MG/3ML 1 VIAL SOL NEB PRN (16:16)
[2018-08-26] MEDS: WARFARIN SODIUM 2.5 MG TAB PO SCH (18:20)
[2018-08-26] MEDS: DILTIAZEM ER 120 MG C24 PO SCH (20:32)
[2018-08-26] MEDS: ATORVASTATIN 10 MG TAB PO SCH (20:32)
[2018-08-26] MEDS: PRAMIPEXOLE DIHYDROCHLORIDE 0.25 MG TAB PO SCH (20:33)
[2018-08-27] MEDS: ALBUTEROL/IPRATROPIUM 1 VIAL SOL INH SCH ×2 (03:10→09:15)
[2018-08-27] MEDS: SODIUM CHLORIDE 0.9% FLUSH 10 ML SOL IV SCH (03:12)
[2018-08-27 07:32] LABS: INR 2.18 (0.86-1.12)
[2018-08-27 07:42] LABS: HEMOGLOBIN A1C 5.8 % (4.8-6.0)
[2018-08-27 08:08] VITALS: BP 131/83; TEMP 98.2
[2018-08-27] MEDS: CALCITONIN (SALMON) 200 IU/Actuation SPR NAS SCH (09:10)
[2018-08-27] MEDS: ACETAMINOPHEN 500 MG 500 MG TAB PO SCH (09:11)
[2018-08-27] MEDS: MAGNESIUM OXIDE 400 MG TAB PO SCH (09:12)
[2018-08-27] MEDS: PANTOPRAZOLE SODIUM 40 MG ECT PO SCH (09:12)
[2018-08-27] MEDS: FUROSEMIDE 40 MG TAB PO SCH (09:13)
[2018-08-27] MEDS: GABAPENTIN 100 MG CAP PO SCH (09:14)
[2018-08-27] MEDS: METOPROLOL SUCCINATE 50 MG ER TAB PO SCH (09:15)
[2018-08-27 09:39] VITALS: PULSE 98; RESP 20; O2SAT 97
[2018-08-27] MEDS ORDERED: WARFARIN SODIUM 5 MG TAB PO SCH (18:00)
== END 2018-08-27 11:20 | DRG 536 ==
LOC: ED 09:47 → UNDOADMOB 12:07 → ACUTE CARE 12:07 → OBSVTOIN 12:25
PROVIDERS: ADMIT Family Medicine; ATTEND Family Medicine
PROC: F01K5YZ Range of Motion and Joint Integrity Assessment of Musculoskeletal System - Upper Back / Upper Extremity using Other Equipment (ICD-10-PCS; principal; 2018-08-25)
PROC: F01K0FZ Muscle Performance Assessment of Musculoskeletal System - Upper Back / Upper Extremity using Assistive, Adaptive, Supportive or Protective Equipment (ICD-10-PCS; 2018-08-25)
PROC: F02Z3ZZ Grooming/Personal Hygiene Assessment (ICD-10-PCS; 2018-08-25)
DX: S80.211A Abrasion, right knee, initial encounter (principal); S32.9XXA Fracture of unspecified parts of lumbosacral spine and pelvis, initial encounter for closed fracture; M25.561 Pain in right knee; R60.9 Edema, unspecified; M25.552 Pain in left hip; R26.89 Other abnormalities of gait and mobility; S32.502A Unspecified fracture of left pubis, initial encounter for closed fracture; L97.821 Non-pressure chronic ulcer of other part of left lower leg limited to breakdown of skin; N18.3 Chronic kidney disease, stage 3 (moderate); Z91.81 History of falling; R20.2 Paresthesia of skin; I48.2 Chronic atrial fibrillation; I50.812 Chronic right heart failure; R06.2 Wheezing; Z79.01 Long term (current) use of anticoagulants
CPT/HCPCS: 36415; 70450; 71046; 71100; 72125; 72141; 72170; 72192; 73502; 80048; 81001; 83036; 83880; 84443; 84484; 85025; 85027; 85610; 93306; 94150; 94640; 94760; 99219; 99231; 99284; G0390; J1940; J7613; A6232; A9270; A9270-GY